=== PATIENT | male | born 1995 | race African-American/Black ===

== ENCOUNTER 2017-04-24 16:50 | Emergency (ER) | payer MEDICAID ==
[~2017-04-24] VITALS: Ht 175.3 cm; Wt 70.0 kg
[2017-04-24] MEDS ORDERED: SODIUM CHLORIDE 0.9% 1,000 ML IV ONE (18:15)
[2017-04-24 18:21] LABS: HEMATOCRIT. 45.3 % (42.0-52.0); HEMOGLOBIN. 15.1 g/dL (14.0-18.0); MEAN CORPUSCULAR HEMOGLOBIN 31.1 pg (28.0-32.0); MEAN CORPUSCULAR VOLUME 93.5 fL (80.0-94.0); MEAN PLATELET VOLUME 8.5 fl (7.4-10.4); PLATELET 263 x1000/uL (130-400); RED BLOOD CELL COUNT 4.84 mill/uL (4.7-6.1); RED CELL DISTRIBUTION WIDTH 13.2 % (11.6-14.6)
[2017-04-24 18:27] LABS: CHLORIDE 105 mEq/L (98-107)
[2017-04-24 18:37] LABS: CARBON DIOXIDE 20 mEq/L (21-32); ETHANOL BLOOD 26 mg/dL
[2017-04-24 19:03] LABS: PLATELET ESTIMATE NORMAL
[2017-04-24 21:40] VITALS: BP 118/56
== END 2017-04-24 21:58 | disposition home or self-care (01) ==
LOC: ER 16:53
DX: E16.2 Hypoglycemia, unspecified (principal)
CPT/HCPCS: 36415; 71045; 80053; 82962; 83735; 85025; 93005; 96360; 99285; G0482; J7030